=== PATIENT | male | born 1995 | race Caucasian/White ===

== ENCOUNTER 2024-01-12 20:43 | Inpatient (IN) | payer BC, MEDICAID, SELFPAY ==
[2024-01-12 20:45] VITALS: PULSE 97; RESP 16; TEMP 36.5; O2SAT 99; BMI 28.7
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
--- NOTE | 2024-01-12 20:54 | PC.NURSE ---
This nurse was given verbal order per Dr Greene to override 2mg Ativan for emergent aggression.
[2024-01-12] MEDS: LORazepam 2 mg/mL INJ 10 mL MDV IM (20:59)
--- NOTE | 2024-01-12 21:36 | PC.NURSE ---
This RN and it security engineer into room to serve 96 hour paperwork. Pt verbalized understanding and is willing at this time.
[2024-01-12 21:45] LABS: Basophils # 0.2 10^3/uL (0.0-0.1); Basophils % 2.2 %; Eosinophils # 0.1 10^3/uL (0.0-0.8); Eosinophils % 1.8 %; Hematocrit 42.1 % (37-53); Lymphocytes # 2.2 10^3/uL (0.8-4.8); Lymphocytes % 29.4 %; Mean Corpuscular HGB Conc 34.7 g/dL (30-55); Mean Corpuscular Hemoglobin 30.6 pg (27-33); Mean Corpuscular Volume 88.3 fl (82-101); Mean Platelet Volume 10.7 fL (7.4-10.4); Monocytes # 0.6 10^3/uL (0.2-0.9); Monocytes % 8.4 %; Neutrophils # 4.37 10^3/uL (1.8-7.7); Neutrophils % 57.5 %; Nucleated Red Blood Cells % 0 %; Platelet Count 432 10^3/cmm (157-399); Red Blood Count 4.77 10^6/uL (3.85-5.65); Red Cell Distribution Width 12.7 % (12.1-15.1); White Blood Count 7.61 10^3/uL (3.29-11.43)
[2024-01-12] MEDS: promethazine 25 mg/mL SDV 1 mL IM (22:12)
--- NOTE | 2024-01-12 22:12 | PC.NURSE ---
Dr Greene gave verbal order for medication. Order placed in SEP but held at this time.
[2024-01-12 22:21] LABS: Alanine Aminotransferase 60 U/L (0-41); Albumin Level 4.8 g/dL (3.5-5.2); Alkaline Phosphatase 61 U/L (40-130); Anion Gap 18.9 (5-19); Aspartate Amino Transferase 89 U/L (0-40); Blood Urea Nitrogen 8 mg/dL (6-20); Calcium 9.1 mg/dL (8.5-10.5); Carbon Dioxide 26 mmol/L (22-29); Chloride 107 mmol/L (98-107); Creatinine Clr Calc Pharmacy 142.4969; Globulin 2.3 g/dL (1.3-4.6); Glomerular Filtration Rate 88.3 mL/min (90-130); Glucose 109 mg/dL (65-115); Osmolality Calculated 305 mOsm/kg (285-295); Potassium 3.9 mmol/L (3.5-5.1); Sodium 148 mmol/L (136-145); Total Bilirubin 0.2 mg/dL (0.15-1.2); Total Protein 7.1 g/dL (6.6-8.7)
[2024-01-12 22:22] LABS: Acetaminophen < 5.0 ug/mL (10-30); Salicylate < 0.3 mg/dL (3-10)
[2024-01-12 22:23] LABS: Alcohol Level 402 mg/dL (0-10)
[2024-01-13 01:51] LABS: Alcohol Level 333 mg/dL (0-10)
[2024-01-13 02:26] VITALS: BP 106/61
[2024-01-13 08:00] VITALS: BP 131/85; PULSE 95; RESP 20; TEMP 37; O2SAT 98
[2024-01-13] MEDS: acetaminophen 325 mg Tablet 650 MG PO (09:37)
[2024-01-13] MEDS: multivitamin therapeutic Tablet 1 TAB PO (09:37)
[2024-01-13] MEDS: PARoxetine 20 mg Tablet PO (09:37)
[2024-01-13] MEDS: thiamine 100 mg Tablet PO (09:37)
[2024-01-13] MEDS: folic acid 1 mg Tablet PO (09:37)
[2024-01-13] MEDS: hyDROXYzine 25 mg Capsule 50 MG PO (09:37)
[2024-01-13 12:00] VITALS: BP 153/74; PULSE 114; RESP 20; TEMP 36.6; O2SAT 96
[2024-01-13] MEDS: LORazepam 2 mg Tablet PO (13:18)
--- NOTE | 2024-01-13 13:54 | PC.NURSE ---
PT UP TO NURSES STATION STATES MY WITHDRAW SYMPTOMS ARE GETTING WORSE, I MAY NEED THAT OTHER MEDICINE. PT CIWA PROTOCOL ASSESSED, SCORED 11, ATIVAN 2 MG GIVEN PO PER PROTOCOL. PT EDUCATION PROVIDED, VERBALIZED UNDERSTANDING, SUPPORT VOICED.
[2024-01-13 16:00] VITALS: BP 129/78; PULSE 83; RESP 20; TEMP 36.7; O2SAT 100
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
[2024-01-13 20:00] VITALS: BP 138/80; PULSE 77; RESP 16; TEMP 37.1; O2SAT 99
[2024-01-13 21:43] LABS: Add Urine Microscopic? YES; Bilirubin Urine Neg (Negative); Blood Urine Neg (Negative); Glucose Urine UA Norm (Normal); Ketones Urine 1+ (Negative); Leukocyte Esterase Urine Trace (Negative); Nitrate Urine Negative; Protein Urine Neg (Negative); Urine Appearance Slightly Cloudy (CLEAR); Urine Color Dark Yellow (Yellow); Urobilinogen Urine 1 mg/dL (Negative); WBC Urine 0-4 /hpf (0-5); pH Urine 7 (5-7)
[2024-01-13 21:44] LABS: Add Urine Culture? No; Bacteria Urine TRACE /hpf; Mucus Urine 3+ /hpf
[2024-01-13 23:42] LABS: Amphetamines Screen Urine Negative (Negative); Barbiturates Screen Urine Positive (Negative); Benzodiazepines Screen Urine Positive (Negative); Cocaine Screen Urine Negative (Negative); Opiate Screen Urine Negative (Negative); PCP Screen Urine Negative (Negative); THC Screen Urine Positive (Negative)
[2024-01-14] VITALS: BP 131/78; PULSE 72; RESP 16; TEMP 36.6; O2SAT 96
[2024-01-14 04:00] VITALS: BP 128/76; PULSE 76; RESP 17; TEMP 37; O2SAT 97
[2024-01-14 08:00] VITALS: BP 143/82; PULSE 78; RESP 16; TEMP 36.8; O2SAT 98
[2024-01-14] MEDS: multivitamin therapeutic Tablet 1 TAB PO (08:15)
[2024-01-14] MEDS: thiamine 100 mg Tablet PO (08:16)
[2024-01-14] MEDS: folic acid 1 mg Tablet PO (08:16)
[2024-01-14] MEDS: PARoxetine 20 mg Tablet PO (08:16)
[2024-01-14 12:00] VITALS: BP 132/90; PULSE 62; RESP 16; TEMP 36.8; O2SAT 100
--- NOTE | 2024-01-14 14:34 | P.NPUPN_ITS ---
Subjective NPU 2 Subjective: Patient presented today continuing to report no issues or need for rehab For drug and alcohol treatment. He denied that the statements in the affidavit represented his true thoughts. We discussed Dr. Menjivar returning tomorrow and evaluating the situation with fresh eyes. He has been on the Paxil for at least 6 weeks. We discussed considering increasing. He denied any side effects or withdrawal symptoms. Mental Status Exam 2 MSE Comments: This is a tall, slender white male in hospital scrubs with adequate grooming and limited eye contact. No abnormal movements except for mild psychomotor retardation. Cooperative with exam in mild to moderate distress. Speech was slightly decreased rate and volume. Mood described as depressed and anxious, affect subdued and odd. Thought process linear to organized. Thought content: Patient denied suicidal or homicidal ideation, he denied paranoia and seems guarded, he denied any auditory or visual hallucinations.The patient denies any current thoughts of hurting himself or others. He denies any feelings of paranoia or hearing things. He has had occasional nightmares or flashbacks about bad things. He has no issues with compulsive behaviors like counting tiles or checking locks. He describes his mood as good, although he has been anxious due to his grandmother's and other things going on in his life.Attention and concentration appear intact and memory appears somewhat reliable but none were formally tested. He is alert and oriented x 3. Insight and judgment are limited and impulse control is impaired. Vitals/I&O/Wt Last Vital Signs Temp 98.3 F 01/14/24 12:00 Pulse 62 01/14/24 12:00 Resp 16 01/14/24 12:00 BP 132/90 01/14/24 12:00 Pulse Ox 100 01/14/24 12:00 O2 Del Method Room Air 01/14/24 04:00 Weight last 48 hrs Weight 104.326 kg Data NPU 01/12/24 21:32 01/12/24 21:32 A&P Assessment and plan (1) Suicidal ideation: (2) Alcohol intoxication: Qualifiers: Complication of substance-induced condition: uncomplicated Qualified Code(s): F10.920 - Alcohol use, unspecified with intoxication, uncomplicated (3) Social anxiety disorder: Plan Patient is a 28-year-old male who presented with some unknown history of antidepressant being prescribed and likely significant history of alcohol use presenting with a BAL of 402 but conversant on a 96-hour hold secondary to reports of suicidal gestures versus threats with significant active alcohol use and alcohol withdrawal. 1. Continue CIWA protocol. 2. Encourage individual, group and milieu therapy. 3. Continue q-15 minute checks for safety.? 4.? Encourage sober living treatment at the highest level of care to which the patient is willing to commit. 5. Will consider appropriate medication for presenting symptoms as we gather collateral information. Involuntary Hold Information 2 96 Hour Hold: 96 Hour Involuntary Admission: Yes 96 Hour Hold Ending Date: 01/18/24 96 Hour Hold Ending Time: 20:43 Attestations NPU 2 Medical Necessity Statement*: Inpatient hospitalization is medically necessary and the clinically appropriate intervention at this time. We will monitor medications and make changes as indicated. Likely length of stay is 3-5 days. Coding Level of Care Code Acute Code for [facility] Fwd Diagnoses Suicidal ideation R45.851 Alcohol intoxication F10.920 Complication of substance-induced condition: uncomplicated Social anxiety disorder F40.10
[2024-01-14 16:00] VITALS: BP 135/78; PULSE 63; RESP 16; TEMP 36.8; O2SAT 99
[2024-01-14] MEDS: hyDROXYzine 25 mg Capsule 50 MG PO ×2 (19:46→19:47)
[2024-01-14 20:00] VITALS: BP 142/84; PULSE 77; RESP 16; TEMP 36.8; O2SAT 97
[2024-01-14] MEDS: trazodone 50 mg Tablet PO (21:24)
[2024-01-15] VITALS: BP 115/74; PULSE 58; RESP 16; O2SAT 97
[2024-01-15 04:00] VITALS: BP 116/74; PULSE 68; RESP 18; O2SAT 97
[2024-01-15 07:44] VITALS: BP 120/85; PULSE 80; RESP 18; TEMP 36.6; O2SAT 98
[2024-01-15] MEDS: PARoxetine 20 mg Tablet PO (09:06)
[2024-01-15] MEDS: hyDROXYzine 25 mg Capsule 50 MG PO ×2 (09:06→21:25)
[2024-01-15] MEDS: folic acid 1 mg Tablet PO (09:06)
[2024-01-15] MEDS: multivitamin therapeutic Tablet 1 TAB PO (09:06)
[2024-01-15] MEDS: thiamine 100 mg Tablet PO (09:06)
--- NOTE | 2024-01-15 09:31 | PC.NURSE ---
IN BED RESTING AROUSES TO VOICE. DENIES PAIN. DENIES SI/HI AND AVH AT THIS TIME. PT DOES WITHDRAW TO ROOM AT TIMES. RATES ANXIETY AND DEPRESSION 12/26. PT WAS GIVEN VISTARIL 50 MG ORDERED FOR ANXIETY. COMPLIANT WITH MEDICATIONS. PT STATES HE DIDN'T' SLEEP VERY GOOD, I TOSSED AND TURNED ALL NIGHT. PT WAS EDUCATED TO SEE NURSE WHEN HE IS UNABLE TO SLEEP AND HE CAN BE GIVEN MEDICATIONS IF NEEDED. PT VERBALIZED UNDERSTANDING. PT STATES GOAL FOR THE DAY IS TO BE MORE CALM. ALL QUESTIONS ANSWERED AND SUPPORT WAS VOICED.
[2024-01-15 14:00] VITALS: BP 135/99; PULSE 92; RESP 20; TEMP 36.6; O2SAT 96
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
--- NOTE | 2024-01-15 20:37 | P.NPUPN_ITS ---
Subjective NPU 2 Subjective: 28-year-old male admitted involuntarily after endorsing suicidal ideation with a blood alcohol level of 402. Patient had reported that he was feeling fine. He had reported that he had been abstaining from alcohol for several months and reported that he would continue to take Paxil if he were to be discharged. He had complained of significant social anxiety. Patient had reported difficulties with managing his worry but stated that he had never attempted suicide before. Mental Status Exam 2 MSE Comments: This is a tall, slender white male in hospital scrubs with adequate grooming and fleeting eye contact. No abnormal movements except for mild psychomotor retardation. He was cooperative with exam in mild to moderate distress. Speech was slightly decreased rate and volume. Mood described as good. His affect was restricted in range and mood congruent. Thought process linear to organized. Thought content: Patient denied suicidal or homicidal ideation, he denied paranoia and seems guarded, he denied any auditory or visual hallucinations.The patient denies any current thoughts of hurting himself or others. He denies any feelings of paranoia or hearing things. He has had occasional nightmares or flashbacks about bad things. He has no issues with compulsive behaviors like counting tiles or checking locks. Attention and concentration appear intact and memory appears somewhat reliable but none were formally tested. He is alert and oriented x 3. Insight and judgment are limited and impulse control is impaired. Vitals/I&O/Wt Last Vital Signs Temp 98 F 01/15/24 14:00 Pulse 92 01/15/24 14:00 Resp 20 H 01/15/24 14:00 BP 135/99 01/15/24 14:00 Pulse Ox 96 01/15/24 14:00 O2 Del Method Room Air 01/15/24 04:00 Data NPU 01/12/24 21:32 01/12/24 21:32 A&P Assessment and plan (1) Suicidal ideation: (2) Alcohol intoxication: Qualifiers: Complication of substance-induced condition: uncomplicated Qualified Code(s): F10.920 - Alcohol use, unspecified with intoxication, uncomplicated (3) Social anxiety disorder: Plan Patient is a 28-year-old male who presented with some unknown history of antidepressant being prescribed and likely significant history of alcohol use presenting with a BAL of 402 but conversant on a 96-hour hold secondary to reports of suicidal gestures versus threats with significant active alcohol use and alcohol withdrawal. 1. Continue CIWA protocol. 2. Encourage individual, group and milieu therapy. 3. Continue q-15 minute checks for safety.? 4.? Encourage sober living treatment at the highest level of care to which the patient is willing to commit. 5. Will consider appropriate medication for presenting symptoms as we gather collateral information. 6. Continue Paxil 20mg daily. Involuntary Hold Information 2 96 Hour Hold: 96 Hour Involuntary Admission: Yes 96 Hour Hold Ending Date: 01/18/24 96 Hour Hold Ending Time: 20:43 Attestations NPU 2 Medical Necessity Statement*: Inpatient hospitalization is medically necessary and the clinically appropriate intervention at this time. We will monitor medications and make changes as indicated. Likely length of stay is 2-3 days. Coding Level of Care Code Acute Code for [facility] Fwd Diagnoses Suicidal ideation R45.851 Alcohol intoxication F10.920 Complication of substance-induced condition: uncomplicated Social anxiety disorder F40.10
[2024-01-15 20:59] VITALS: BP 129/83; PULSE 77; RESP 18; O2SAT 98
[2024-01-15] MEDS: trazodone 50 mg Tablet PO (21:25)
[2024-01-16 06:00] VITALS: BP 132/86; PULSE 73; RESP 18; TEMP 36.4; O2SAT 98
[2024-01-16] MEDS: thiamine 100 mg Tablet PO (08:42)
[2024-01-16] MEDS: folic acid 1 mg Tablet PO (08:42)
[2024-01-16] MEDS: PARoxetine 20 mg Tablet PO (08:42)
[2024-01-16] MEDS: multivitamin therapeutic Tablet 1 TAB PO (08:42)
[2024-01-16 14:00] VITALS: BP 133/84; PULSE 60; RESP 20; TEMP 36.6; O2SAT 98
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
[2024-01-16 18:28] VITALS: BP 133/84; PULSE 60; RESP 20; TEMP 36.6; O2SAT 98
== END 2024-01-16 18:45 | disposition home or self-care (01) | DRG 897 ==
LOC: ER 22:55 → NP 23:35
PROVIDERS: Admitting Provider Psychiatry & Neurology Psychiatry; Emergency Provider Emergency Medicine; PCP Family Medicine; Visit Provider Psychiatry & Neurology Psychiatry
DX: F10.229 Alcohol dependence with intoxication, unspecified (principal); R45.851 Suicidal ideations; Y90.8 Blood alcohol level of 240 mg/100 ml or more; F12.90 Cannabis use, unspecified, uncomplicated; F40.10 Social phobia, unspecified
CPT/HCPCS: 36415; 80053; 80306; 80307; 81001; 84443; 85025; 96372; 97150; 97165; 99285; J2060; J2550